=== PATIENT | male | born 1995 | race African-American/Black ===

== ENCOUNTER 2017-02-08 21:12 | Emergency (ER) | payer SELFPAY ==
[2017-02-08 21:13] VITALS: BP 143/71; PULSE 94; RESP 14; TEMP 99.8; O2SAT 97
[2017-02-08] MEDS ORDERED: LIDOCAINE HCL 1% 50 ML VIAL INFIL ONE (22:45)
[2017-02-08] MEDS ORDERED: LIDOCAINE HCL 1% 30 ML VIAL ONE (22:45)
--- NOTE | 2017-02-08 22:45 | PD ---
HPI Chief Complaint: Laceration/Skin Injury Time Seen by Provider: 22:40 Travel History International Travel<30 days: No Contact w/Intl Traveler<30days: No Traveled to known affect area: No History of Present Illness HPI 21-year-old black male presents to emergency department with a laceration to his right upper eyelid secondary to a head butt pain basketball prior to arrival. He denies syncope. No neck or back pain. No visual changes. Up-to- date with immunizations. Pain is minimal. [facility] Past Medical History Medical History: Denies Significant Hx Tetanus Vaccination: < 5 Years Past Surgical History Surgical History: No Previous Surgery Social History Alcohol Use: No Tobacco Use: No Substance Use: No Allergies-Medications (Allergen,Severity, Reaction): Coded Allergies: No Known Allergies (Unverified , 02/08/17) Review of Systems Except as stated in HPI: all other systems reviewed are Neg Physical Exam Narrative GENERAL: Well-developed, well-nourished in no acute distress. Nontoxic appearing. HEAD: Normocephalic, patient has a 3 center laceration involving the right upper eyelid. No foreign body. Norvasc intact.. EYES: Pupils equal round and reactive. Extraocular motions intact. No scleral icterus. No injection or drainage. ENT: TMs clear without erythema. The external auditory canals clear. Nose: clear . Posterior pharynx is pink and moist. No tonsillar edema or exudate. Uvula midline. Airway patent. NECK: Trachea midline.Supple, nontender, moves head freely. No central bony tenderness or spasm. CARDIOVASCULAR: Regular rate and rhythm without murmurs, gallops, or rubs. RESPIRATORY: Clear to auscultation. Breath sounds equal bilaterally. No wheezes , rales, or rhonchi. GASTROINTESTINAL: Abdomen soft, non-tender, nondistended. No hepato-splenomegaly , or palpable masses. No guarding. EXTREMITIES: No clubbing, cyanosis, or edema. No joint tenderness, effusion, or edema noted. BACK: Nontender without deformity or crepitance. No flank tenderness. Data Data Last Documented VS Vital Signs Date Time Temp Pulse Resp B/P Pulse Ox O2 Delivery O2 Flow Rate FiO2 02/08/17 21:13 99.8 94 14 143/71 97 Room Air MDM Medical Decision Making Medical Screen Exam Complete: Yes Emergency Medical Condition: Yes Medical Record Reviewed: Yes Differential Diagnosis MDM: High Differential diagnoses: Fracture, sprain, strain, dislocation, contusion, neurovascular injury Narrative Course Patient's laceration is closed sutures. Procedures Procedure Narrative LACERATION LOCATION: Right upper eyelid LENGTH: 2 cm NUMBER OF STITCHES/SUZANNE: 6 REPAIR: The area of the laceration was prepped with Betadine and sterilely draped. The laceration was infiltrated with 1% lidocaine. The wound was copiously irrigated and explored without evidence of foreign body, tendon injury or neurovascular injury. The wound was closed using 6-0 Prolene. This was a simple single layer repair. A sterile dressing was applied. The patient was advised to keep the dressing clean and dry. Patient tolerated the procedure well. Diagnosis Primary Impression: Facial laceration Qualified Code: S01.81XA - Facial laceration, initial encounter Patient Instructions: General Instructions Additional Instructions: Rest. Ice pack tonight. Tylenol or Advil for pain. Daily wound care with soap, water, Neosporin. Sutures out in 5 days. Sunscreen and mederma for 6 months. Return to the ER for any problems. Med/Other Pt SpecificInfo: No Meds Exist/No RX given, Wound Care Disposition: 01 DISCHARGE HOME Condition: Stable Guicho Martin Feb 08, 2017 22:44
== END 2017-02-08 23:17 | disposition home or self-care (01) ==
LOC: NETRI 21:12
DX: S01.111A Laceration without foreign body of right eyelid and periocular area, initial encounter (principal); W51.XXXA Accidental striking against or bumped into by another person, initial encounter; Y93.67 Activity, basketball
CPT/HCPCS: 12011

== ENCOUNTER 2017-02-15 12:20 | Emergency (ER) | payer BC ==
[~2017-02-15] VITALS: Ht 175.3 cm; Wt 71.0 kg
[2017-02-15 12:21] VITALS: BP 143/93; PULSE 109; RESP 14; TEMP 97.9; O2SAT 100
--- NOTE | 2017-02-15 13:15 | PD ---
HPI . suture removal Chief Complaint: Wound/Suture/Staple Re-Check Time Seen by Provider: 13:10 Travel History International Travel<30 days: No Contact w/Intl Traveler<30days: No Traveled to known affect area: No History of Present Illness HPI 21-year-old male who received 6 sutures to his right upper eyelid on February 08, 2017 here for removal of sutures. He has not had any problems with the sutures. He has no complaints today. PENDING SALE TO [facility] Social History Alcohol Use: No Tobacco Use: No Substance Use: No Allergies-Medications (Allergen,Severity, Reaction): Coded Allergies: No Known Allergies (Unverified , 02/15/17) Review of Systems General / Constitutional: No: Fever Eyes: No: Visual changes HENT: No: Headaches Cardiovascular: No: Chest Pain or Discomfort Respiratory: No: Shortness of Breath Gastrointestinal: No: Abdominal Pain Genitourinary: No: Dysuria Musculoskeletal: No: Pain Skin: No Rash Neurologic: No: Weakness Psychiatric: No: Depression Endocrine: No: Polydipsia Hematologic/Lymphatic: No: Easy Bruising Physical Exam Narrative GENERAL: AAO x 3, no acute distress, Well-nourished, well-developed patient. SKIN: Warm and dry. No visible rashes or bruising. 6 sutures intact right eyelid , no evidence of infection or dehiscence HEAD: Normocephalic and atraumatic. EYES: No scleral icterus. No injection or drainage. EOM intact, PERRLA ENT: No nasal drainage noted. Mucous membranes pink. Airway patent. NECK: Supple, trachea midline. No JVD. CARDIOVASCULAR: Regular rate and rhythm without murmurs, gallops, or rubs. RESPIRATORY: Breath sounds equal bilaterally. No accessory muscle use. No rhonchi or rales. GASTROINTESTINAL: Abdomen soft, non-tender, nondistended. EXTREMITIES: No cyanosis or edema. BACK: Nontender without obvious deformity. No CVA tenderness. PSYCH: AAO x 3, normal affect. Data Data Last Documented VS Vital Signs Date Time Temp Pulse Resp B/P Pulse Ox O2 Delivery O2 Flow Rate FiO2 02/15/17 12:21 97.9 109 14 143/93 100 MDM Medical Decision Making Medical Screen Exam Complete: Yes Emergency Medical Condition: Yes Medical Record Reviewed: Yes Differential Diagnosis sutures removal, less likely wound dehiscence, less likely cellulitis Narrative Course 21-year-old male who received 6 sutures to his right upper eyelid on February 08, 2017 here for removal of sutures. He has not had any problems with the sutures. He has no complaints today. Patient seen and examined. 6 sutures were removed. One of the sutures was slightly overgrown, but was removed with some gentle traction. Patient tolerated without incident. We discussed scarring and that it was a very significant possibility. Advised Mederma as an outpatient Patient verbalized understanding of instructions, questions were answered, and thanked me for their care. I advised them if their condition worsens, please return to the nearest emergency room for further care. Diagnosis Primary Impression: Encounter for removal of sutures Additional Impression: Facial laceration Qualified Code: S01.81XD - Facial laceration, subsequent encounter Patient Instructions: General Instructions Additional Instructions: As we discussed, this area may scar. You can use Mederma and sunscreen to minimize incidence of scarring. Med/Other Pt SpecificInfo: No Meds Exist/No RX given Disposition: 01 DISCHARGE HOME Condition: Stable Rachael Becerra Feb 15, 2017 13:15
== END 2017-02-15 13:55 | disposition home or self-care (01) ==
LOC: NEPK 12:20
DX: S01.81XD Laceration without foreign body of other part of head, subsequent encounter (principal); Z48.02 Encounter for removal of sutures
CPT/HCPCS: 99281